=== PATIENT | male | born 1995 | race American Indian/Alaskan Native ===

== ENCOUNTER 2020-12-10 20:39 | Emergency (ER) | payer SELFPAY ==
[2020-12-10 21:26] LABS: Basophils % (Auto) 0.3 % (0.0-1.8); Eosinophils % (Auto) 0.6 % (0.0-4.3); Hematocrit 38.7 % (35.5-45.6); Hemoglobin 12.9 gm/dl (11.8-15.2); Lymphocytes # (Auto) 0.9 K/mm3 (1.2-5.4); Lymphocytes % (Auto) 12.6 % (13.4-35.0); Mean Corpuscular HGB Conc 33 % (32-34); Mean Corpuscular Volume 92 fl (84-94); Monocytes # (Auto) 0.4 K/mm3 (0.0-0.8); Monocytes % (Auto) 5.1 % (0.0-7.3); Platelet Count 123 K/mm3 (140-440); Red Blood Count 4.21 M/mm3 (3.65-5.03); Red Cell Distribution Width 13.2 % (13.2-15.2)
--- NOTE | 2020-12-10 21:39 | Emergency Department Report ---
ED Seizure HPI - General Chief Complaint: Seizure Stated Complaint: SEIZURES Time Seen by Provider: 12/10/20 20:50 Source: patient, EMS Mode of arrival: Stretcher Limitations: No Limitations - History of Present Illness Initial Comments: Chief complaint: Seizure HPI: This is a healthy 25-year-old male with history of marijuana use who presents with seizure witnessed at home by girlfriend. Girlfriend informed EMS that suddenly while talking, patient's eyes rolled back into his head and he started to convulse. Unknown duration. However upon EMS arrival, patient was drowsy and slow to respond. After 10 minutes of observation, patient became alert. Patient states that he remembers getting ready for work and talking to his girlfriend. His next memory was waking up in the back of the ambulance. He has been feeling well. He has been in his normal state of health. He states that he feels well now. Patient states that he smokes "6 blunts" a day of marijuana. Family member called treatment nurse. Family informed treatment nurse that patient likely smokes synthetic marijuana. Patient denies smoking synthetic marijuana. MD Complaint: seizure -: Sudden, This evening Description of Episode: loss of consciousness, tonic-clonic movement Witnessed:: Yes Trauma: No Place: home Possible Precipitating Event: other (Marijuana use) Associated Symptoms: denies other symptoms Treatments Prior to Arrival: other (EMS transportation) - Related Data Allergies Allergy/AdvReac Type Severity Reaction Status Date / Time No Known Allergies Allergy Unverified 12/10/20 20:54 ED Review of Systems ROS: Stated complaint: SEIZURES Other details as noted in HPI Comment: All other systems reviewed and negative Constitutional: denies: fever, malaise Respiratory: denies: cough, shortness of breath Cardiovascular: denies: chest pain Gastrointestinal: denies: abdominal pain, nausea, vomiting Neurological: headache ED Past Medical Hx - Past Medical History Previous Medical History?: No - Surgical History Past Surgical History?: No - Social History Smoking Status: Never Smoker Substance Use Type: Alcohol, Marijuana ED Physical Exam - General Limitations: No Limitations General appearance: alert, in no apparent distress - Head Head exam: Present: atraumatic, normocephalic - Eye Eye exam: Present: normal appearance - ENT ENT exam: Present: mucous membranes moist - Neck Neck exam: Present: normal inspection, full ROM - Respiratory Respiratory exam: Present: normal lung sounds bilaterally. Absent: respiratory distress, wheezes, rales, rhonchi - Cardiovascular Cardiovascular Exam: Present: regular rate, normal rhythm, normal heart sounds. Absent: systolic murmur, diastolic murmur, rubs, gallop - GI/Abdominal GI/Abdominal exam: Present: soft, normal bowel sounds. Absent: distended, tenderness, guarding, rebound - Rectal Rectal exam: Present: deferred - Extremities Exam Extremities exam: Present: normal inspection - Neurological Exam Neurological exam: Present: alert, oriented X3, CN II-XII intact, normal gait - Expanded Neurological Exam Expanded Patient oriented to: Present: person, place, time Speech: Present: fluid speech Cranial nerves: EOM's Intact: Normal Cerebellar function: Finger to Nose: Normal Sensory exam: Upper Extremity Light Touch: Normal Motor strength exam: RUE: 5, LUE: 5, RLE: 5, LLE: 5 Best Eye Response ([place]): (4) open spontaneously Best Motor Response ([place]): (6) obeys commands Best Verbal Response ([place]): (5) oriented [place] Total: 15 - Psychiatric Psychiatric exam: Present: normal affect, normal mood - Skin Skin exam: Present: warm, dry, intact, normal color. Absent: rash ED Course Vital Signs 12/10/20 12/10/20 12/10/20 20:45 20:48 21:01 Temperature 97.4 F L Pulse Rate 75 Respiratory 17 Rate Blood Pressure 151/98 [Left] O2 Sat by Pulse 99 Oximetry ED Medical Decision Making - Lab Data Result diagrams: 12/10/20 21:14 - Medical Decision Making Seizure witnessed with no previous history. I suspect marijuana use has lowered patient's seizure threshold. I strongly recommended cessation of marijuana use. He understands he is not allowed to drive until he is cleared by neurologist. CBC chemistry magnesium phosphorus within normal limits. CT head negative for intracranial abnormality such as bleed or obvious mass. Patient was given a referral to neurologist. Patient also understands seizure precautions including avoidance of swimming, working at heights, working near heated surfaces. Critical care attestation.: If time is entered above; I have spent that time in minutes in the direct care of this critically ill patient, excluding procedure time. ED Disposition Clinical Impression: Seizure, Marijuana dependence Disposition: -01 TO HOME OR SELFCARE Is pt being admited?: No Does the pt Need Aspirin: No Condition: Stable Instructions: Cannabis Use Disorder, Seizure, Adult, [id number] Referrals: SONDRA TURNER MD [Referring] - 3-5 Days Forms: Work/School Release Form(ED)
--- NOTE | 2020-12-10 21:40 | Cat Scan Report ---
CT HEAD WITHOUT CONTRAST INDICATION : seizure. TECHNIQUE: Axial, coronal and sagittal CT imaging was performed from the skull apex through the skul l base without contrast. All CT scans at this location are performed using CT dose reduction for ALA RA by means of automated exposure control. COMPARISON: None available. FINDINGS: PARENCHYMA: No mass, midline shift, hemorrhage, extraaxial collection or acute territorial infarctio n. VENTRICLES: Symmetric and normal in size. SOFT TISSUES: No significant abnormality of the included soft tissues/orbits. BONES: No acute osseous abnormality. SINUSES: No significant abnormality. ADDITIONAL FINDINGS: None. IMPRESSION: 1. No acute intracranial abnormality. Signer Name: Yair Chris MD Signed: 12/10/2020 9:36 PM Workstation Name: [id number]
[2020-12-10 21:46] LABS: Alanine Aminotransferase 19 units/L (7-56); Albumin 4.6 g/dL (3.9-5); BUN/Creatinine Ratio 14; Blood Urea Nitrogen 15 mg/dL (9-20); Calcium 9.2 mg/dL (8.4-10.2); Hemolysis Index 16
[2020-12-10 22:32] VITALS: BP 135/87
== END 2020-12-10 22:39 | disposition home or self-care (01) ==
LOC: ED 20:39
DX: G40.909 Epilepsy, unspecified, not intractable, without status epilepticus (principal); F12.20 Cannabis dependence, uncomplicated
CPT/HCPCS: 36415; 70450; 80053; 83735; 84100; 85025

== ENCOUNTER 2021-01-19 10:54 | Emergency (ER) | payer SELFPAY ==
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
[2021-01-19] MEDS ORDERED: LORazepam 2 MG/ML VIAL ONE (13:34)
[2021-01-19] MEDS ORDERED: levETIRAcetam 1000 MG/NS 0.75% 1,000 MG/100 ML BAG IV ONE ×2 (13:36→13:38)
[2021-01-19 16:14] VITALS: BP 148/105
== END 2021-01-19 16:30 | disposition home or self-care (01) ==
LOC: ED 10:54
DX: G40.909 Epilepsy, unspecified, not intractable, without status epilepticus (principal); F12.10 Cannabis abuse, uncomplicated; Z79.899 Other long term (current) drug therapy
CPT/HCPCS: 96365; 99283; J1953; J2060

== ENCOUNTER 2021-02-18 10:23 | Emergency (ER) | payer SELFPAY ==
--- NOTE | 2021-02-18 10:55 | Event Note ---
ED Screening Note ED Screening Note: Patient presents for seizure-like activity that occurred just prior to arrival He states it was witnessed by his girlfriend He states it lasted approximately 30 seconds Patient states that he is on a seizure medication but does not know what he takes He states he did not take it for 5 days because "he had a lot going on" This initial assessment/diagnostic orders/clinical plan/treatment(s) is/are subject to change based on patients health status, clinical progression and re- assessment by fellow clinical providers in the ED. Further treatment and workup at subsequent clinical providers discretion. Patient/guardian urged not to elope from the ED as their condition may be serious if not clinically assessed and managed. Initial orders include: Labs, urine
[2021-02-18 11:11] LABS: Basophils % (Auto) 0.7 % (0.0-1.8); Eosinophils # (Auto) 0.1 K/mm3 (0.0-0.4); Eosinophils % (Auto) 1.5 % (0.0-4.3); Hematocrit 44.6 % (35.5-45.6); Lymphocytes # (Auto) 0.9 K/mm3 (1.2-5.4); Lymphocytes % (Auto) 14.1 % (13.4-35.0); Mean Corpuscular HGB Conc 34 % (32-34); Mean Corpuscular Volume 93 fl (84-94); Monocytes # (Auto) 0.6 K/mm3 (0.0-0.8); Monocytes % (Auto) 9.8 % (0.0-7.3); Platelet Count 105 K/mm3 (140-440); Red Blood Count 4.78 M/mm3 (3.65-5.03); Red Cell Distribution Width 13.1 % (13.2-15.2)
[2021-02-18 11:14] LABS: Bilirubin,Urine NEG (Negative); Blood,Urine NEG (Negative); Color,Urine Yellow (Yellow); Mucus,Urine FEW /HPF; Protein,Urine <15 mg/dL mg/dL (Negative); Urobilinogen,Urine < 2.0 mg/dL (<2.0)
[2021-02-18 11:25] LABS: Alanine Aminotransferase 21 units/L (7-56); Albumin 5.3 g/dL (3.9-5); BUN/Creatinine Ratio 19; Blood Urea Nitrogen 19 mg/dL (9-20); Hemolysis Index 4
[2021-02-18] MEDS ORDERED: levETIRAcetam 1000 MG/NS 0.75% 1,000 MG/100 ML BAG IV ONE (12:45)
[2021-02-18] MEDS ORDERED: LORazepam 2 MG/ML VIAL IV ONE (12:45)
[2021-02-18] MEDS ORDERED: LORazepam 2 MG/ML VIAL IM STA (12:48)
--- NOTE | 2021-02-18 12:54 | Emergency Department Report ---
ED Seizure HPI - General Chief Complaint: Seizure Stated Complaint: SEIZURE Time Seen by Provider: 02/18/21 10:39 Source: patient Mode of arrival: Ambulatory Limitations: No Limitations - History of Present Illness Initial Comments: CC: seizure HPI: THis is a 25 yo male with hx of seizure disorder who presents after seizure this morning. Patient was rushed to treatment room after having a second seizure in the ED waiting room. Patient is currently nonverbal. According to triage note, patient has not taken seizure medication since Sunday. I evaluated this gentleman in December. At that time, family member informed nursing staff that patient smoked synthetic marijuana. At that time, patient did not have hx of seizures. Patient was evaluated subsequent in January. He confirmed to that provider that he continues to smoke synthetic marijuana. He was prescribed Keppra at that time. Once awake, patient states that he has been sober for 14 days. He has not smoked synthetic marijuana in the last 2 weeks. He admits that he has been very busy. Consequently he forgets to take his seizure medication. He has refrain from driving. He now has left neck pain. Feels like a "crick in his neck" MD Complaint: seizure, other (30 second seizure witnessed by girlfriend, subsequent seizure) -: Sudden, This morning, This afternoon Description of Episode: loss of consciousness, tonic-clonic movement Witnessed:: Yes Trauma: No Seizure History: other (recent seizures began in December 2020) Possible Precipitating Event: drug use (synthetic marijuana) - Related Data Previous Rx's Medication Instructions Recorded Last Taken Type levETIRAcetam [Keppra TAB] 500 mg PO BID #60 tablet 01/19/21 Unknown Rx levETIRAcetam [Keppra TAB] 500 mg PO BID #60 tablet 02/18/21 Unknown Rx Allergies Allergy/AdvReac Type Severity Reaction Status Date / Time No Known Allergies Allergy Unverified 12/10/20 20:54 ED Review of Systems ROS: Stated complaint: SEIZURE Other details as noted in HPI Comment: Unobtainable due to pts medical conditions (altered mental status) ED Past Medical Hx - Past Medical History Previous Medical History?: Yes Hx Seizures: Yes - Surgical History Past Surgical History?: No - Social History Substance Use Type: Alcohol, Marijuana, Other (synthetic marijuana) - Medications Home Medications: Home Medications Medication Instructions Recorded Confirmed Last Taken Type levETIRAcetam [Keppra TAB] 500 mg PO BID #60 tablet 01/19/21 Unknown Rx levETIRAcetam [Keppra TAB] 500 mg PO BID #60 tablet 02/18/21 Unknown Rx ED Physical Exam - General Limitations: No Limitations General appearance: lethargic, other (eyes closed, pushing away staff, purposeful movement, protecting airway) - Head Head exam: Present: atraumatic, normocephalic - Eye Eye exam: Present: normal appearance - ENT ENT exam: Present: mucous membranes moist - Neck Neck exam: Present: normal inspection, full ROM - Respiratory Respiratory exam: Present: normal lung sounds bilaterally. Absent: respiratory distress, wheezes, rales, rhonchi - Cardiovascular Cardiovascular Exam: Present: regular rate, normal rhythm, normal heart sounds. Absent: systolic murmur, diastolic murmur, rubs, gallop - GI/Abdominal GI/Abdominal exam: Present: soft, normal bowel sounds. Absent: distended, tenderness, guarding, rebound - Rectal Rectal exam: Present: deferred - Extremities Exam Extremities exam: Present: normal inspection - Neurological Exam Neurological exam: Present: altered - Psychiatric Psychiatric exam: Present: flat affect - Skin Skin exam: Present: warm, dry, intact, normal color. Absent: rash ED Course Vital Signs 02/18/21 10:37 Temperature 98.3 F Pulse Rate 88 Respiratory 18 Rate Blood Pressure 183/119 O2 Sat by Pulse 99 Oximetry ED Medical Decision Making - Lab Data Result diagrams: 02/18/21 10:42 02/18/21 10:42 Laboratory Results - last 24 hr 02/18/21 02/18/21 02/18/21 10:42 10:42 Unknown WBC 6.2 RBC 4.78 Hgb 15.0 Hct 44.6 MCV 93 MCH 31 MCHC 34 RDW 13.1 L Plt Count 105 L Lymph % (Auto) 14.1 [place] % (Auto) 9.8 H Eos % (Auto) 1.5 Baso % (Auto) 0.7 Lymph # (Auto) 0.9 L [place] # (Auto) 0.6 Eos # (Auto) 0.1 Baso # (Auto) 0.0 Seg Neutrophils % 73.9 H Seg Neutrophils # 4.6 Sodium 138 Potassium 5.5 H Chloride 100.5 Carbon Dioxide 27 Anion Gap 16 BUN 19 Creatinine 1.0 Estimated GFR > 60 BUN/Creatinine Ratio 19 Glucose 115 H Calcium 10.0 Magnesium 2.00 Total Bilirubin 0.60 AST 21 ALT 21 Alkaline Phosphatase 62 Total Creatine Kinase 517 H Total Protein 7.9 Albumin 5.3 H Albumin/Globulin Ratio 2.0 Urine Color Yellow Urine Turbidity Clear Urine pH 5.0 Ur Specific [place] 1.017 Urine Protein <15 mg/dl Urine Glucose (UA) Neg Urine Ketones Neg Urine Blood Neg Urine Nitrite Neg Urine Bilirubin Neg Urine Urobilinogen < 2.0 Ur Leukocyte Esterase Neg Urine WBC (Auto) 1.0 Urine RBC (Auto) 2.0 Urine Mucus Few - Radiology Data Radiology results: report reviewed Patient Name: KENA BUCK Gender: Male Date of : 1995 Referring Provider: RAMÍREZ JOHNSON Organization: [facility] [place] Accession Number: [id number] Requested Date: February 18, 2021 13:41 Report Status: Final Requested Procedure: 1 Procedure Description: CT cervical spine wo con Modality: CT Findings Reporting MD: Doug Barba Dictation Time: February 18, 2021 13:12 Software Sales Representative: Not available Real Estate Sales Agent Date: CT CERVICAL SPINE WITHOUT CONTRAST INDICATION: neck pain, recent seizure. TECHNIQUE: Axial CT images of the spine were obtained. Sagittal and coronal reformatted images were produced. All CT scans at this location are performed using CT dose reduction for ALARA by means of automated exposure control. COMPARISON: None available. FINDINGS: ACUTE FRACTURE(S) OR SUBLUXATION: None. SPINAL DEGENERATIVE CHANGES: Broad-based disc protrusion at C4-5 causes moderate central canal stenosis. PARASPINAL SOFT TISSUES: No soft tissue swelling or other acute abnormalities. ADDITIONAL FINDINGS: No significant additional findings. IMPRESSION: 1. No acute fracture or subluxation in the spine in neutral position. 2. Moderate central canal stenosis at C4-5 due to a broad-based disc protrusion at that level. Signer Name: Doug Barba MD Signed: 02/18/2021 1:12 PM Workstation Name: [id number] - Medical Decision Making 1. Recurrent seizure, this is patient's third visit in 2 months for new seizure disorder. I strongly recommended cessation of drug use. Also encourage c ompliance with Keppra. He understands seizure precautions including avoidance of swimming and hot surfaces. He understands to avoid heights. He understands that he is not allowed to drive. Patient given prescription of Keppra with refills. Referred to neurologist. 2. Neck pain: recent seizure, CT Cervical spine obtained to rule out fracture, did reveal cervical disc disease Patient is now awake alert. He is ambulatory without difficulty. He was given extensive verbal education regarding seizures. I strongly recommended evaluation by neurologist. Critical care attestation.: If time is entered above; I have spent that time in minutes in the direct care of this critically ill patient, excluding procedure time. ED Disposition Clinical Impression: Seizure, Cervical strain, acute, Cervical disc disease Disposition: DC-01 TO HOME OR SELFCARE Is pt being admited?: No Does the pt Need Aspirin: No Condition: Fair Instructions: Cervical Sprain, Seizure, Adult Prescriptions: levETIRAcetam [Keppra TAB] 500 mg PO BID #60 tablet Referrals: SONDRA TURNER MD [Referring] - 3-5 Days Forms: Work/School Release Form(ED)
[2021-02-18] MEDS ORDERED: KETOROLAC 30 MG/1 ML INJ IV ONE (13:40)
[2021-02-18] MEDS ORDERED: ONDANSETRON 4 MG/2 ML INJ IV ONE (13:40)
[2021-02-18] MEDS ORDERED: MORPHINE 4 MG/1 ML INJ IV ONE (13:40)
--- NOTE | 2021-02-18 14:17 | Cat Scan Report ---
CT CERVICAL SPINE WITHOUT CONTRAST INDICATION: neck pain, recent seizure. TECHNIQUE: Axial CT images of the spine were obtained. Sagittal and coronal reformatted images were produced. Al l CT scans at this location are performed using CT dose reduction for ALARA by means of automated exp osure control. COMPARISON: None available. FINDINGS: ACUTE FRACTURE(S) OR SUBLUXATION: None. SPINAL DEGENERATIVE CHANGES: Broad-based disc protrusion at C4-5 causes moderate central canal stenos is. PARASPINAL SOFT TISSUES: No soft tissue swelling or other acute abnormalities. ADDITIONAL FINDINGS: No significant additional findings. IMPRESSION: 1. No acute fracture or subluxation in the spine in neutral position. 2. Moderate central canal stenosis at C4-5 due to a broad-based disc protrusion at that level. Signer Name: Doug Barba MD Signed: 02/18/2021 2:12 PM Workstation Name: [id number]
[2021-02-18 14:36] VITALS: BP 148/91
== END 2021-02-18 15:20 | disposition home or self-care (01) ==
LOC: ED 10:23
DX: S16.1XXA Strain of muscle, fascia and tendon at neck level, initial encounter (principal); M48.02 Spinal stenosis, cervical region; R56.9 Unspecified convulsions; F12.10 Cannabis abuse, uncomplicated; Z79.899 Other long term (current) drug therapy; X58.XXXA Exposure to other specified factors, initial encounter; Y93.89 Activity, other specified; Y92.89 Other specified places as the place of occurrence of the external cause; Y99.8 Other external cause status
CPT/HCPCS: 36415; 72125; 80053; 81001; 82550; 83735; 85025; 96365; 96372; 96375; 99284; J1885; J1953; J2060; J2270; J2405